=== PATIENT | male | born 1990 | race African-American/Black ===

== ENCOUNTER 2021-05-29 02:46 | Emergency (ER) | payer SELFPAY ==
[2021-05-29 02:53] VITALS: BP 126/68; PULSE 54; RESP 20; TEMP 98.7
--- NOTE | 2021-05-29 02:53 | ED ---
General Adult HPI - General Stated complaint: covid swab Time Seen by Provider: 05/29/21 02:57 - History of Present Illness Initial comments: 30 year-old male patient comes to the emergency department requesting COVID test in order to [place] the border into [place]. He denies any current symptoms or any recent exposure. Denies need for any further evaluation. - Related Data Home Medications Medication Instructions Recorded Confirmed No Known Home Medications 05/29/21 05/29/21 Allergies Allergy/AdvReac Type Severity Reaction Status Date / Time No Known Allergies Allergy Verified 05/29/21 02:53 Review of Systems ROS Statement: Those systems with pertinent positive or pertinent negative responses have been documented in the HPI. ROS Other: All systems not noted in ROS Statement are negative. General Exam General appearance: alert, in no apparent distress Psychiatric exam: Present: normal affect, normal mood Skin exam: Present: warm, dry, intact, normal color. Absent: rash Course Vital Signs 05/29/21 02:50 Temperature 98.7 F Pulse Rate 54 L Respiratory 20 Rate Blood Pressure 126/68 O2 Sat by Pulse 97 Oximetry Medical Decision Making - Medical Decision Making 30 year-old male patient presented for COVID swab in order to cross border into [place]. He tested negative. Was provided with copy of result. My attending is Dr. Garrido. - Lab Data Lab Results 05/29/21 Range/Units 02:54 Coronavirus (PCR) Not Detected (Not Detectd) Disposition Clinical Impression: Encounter for laboratory testing for COVID-19 virus Disposition: HOME SELF-CARE Condition: Good Instructions (If sedation given, give patient instructions): Coronavirus Disease 2019 (COVID-19) Is patient prescribed a controlled substance at d/c from ED?: No Referrals: None,Stated [Primary Care Provider] - 1-2 days Time of Disposition: 03:45
== END 2021-05-29 04:15 | disposition home or self-care (01) ==
LOC: EC 02:46
DX: Z20.822 Contact with and (suspected) exposure to COVID-19 (principal)
CPT/HCPCS: 87635; 99283